=== PATIENT | male | born 1975 | race Caucasian/White ===

== ENCOUNTER 2017-09-12 10:55 | Emergency (ER) | payer OTHER ==
[2017-09-12 11:06] VITALS: BP 123/76
== END 2017-09-12 14:50 | disposition home or self-care (01) ==
LOC: ED 10:55
DX: M79.644 Pain in right finger(s) (principal); X50.9XXA Other and unspecified overexertion or strenuous movements or postures, initial encounter; Y93.89 Activity, other specified; Y92.89 Other specified places as the place of occurrence of the external cause; Y99.8 Other external cause status